=== PATIENT | female | born 1980 | race Caucasian/White ===

== ENCOUNTER → 2016-11-19 | Outpatient (CLI) | payer OTHER, BC ==
[~2016-11-19] MED LIST: ACYC5CRE4; VALA1TAB PO; ZPAK
[2016-11-19 12:43] LABS: ALT/SGPT 18 U/L (12-78); BLOOD UREA NITROGEN 12 mg/dl (7-18); BUN/CREATININE RATIO 16.3 (10-20); CARBON DIOXIDE 28 mmol/L (21-32); CHLORIDE 109 mmol/L (98-107); CHOLESTEROL 208 mg/dl (0-200); CREATININE 0.72 mg/dl (0.60-1.20); GLUCOSE 80 mg/dl (70-99); POTASSIUM 3.6 mmol/L (3.5-5.1); SODIUM 142 mmol/L (136-145)
[2016-11-19 12:48] LABS: ALKALINE PHOSPHATASE 58 U/L (45-117); AST/SGOT 17 U/L (15-37); HDL CHOLESTEROL 69 mg/dl; LDL CHOLESTEROL CALCULATED 129 mg/dl; TRIGLYCERIDES 51 mg/dl (0-150); VERY LOW DENSITY LIPOPROT CALC 10 mg/dl
== END | disposition home or self-care (01) ==
LOC: C.LABPBG 08:14
PROVIDERS: ATTEND Physician Assistant
DX: Z00.00 Encounter for general adult medical examination without abnormal findings (principal)

== ENCOUNTER → 2016-12-13 | Outpatient (CLI) | payer OTHER, BC ==
[2016-12-13 13:00] LABS: LYME DISEASE AB IGG NEG (NEG); LYME DISEASE AB IGM NEG (NEG)
== END | disposition home or self-care (01) ==
LOC: C.LABPBG 08:26
PROVIDERS: ATTEND Physician Assistant
DX: R20.2 Paresthesia of skin (principal); R53.83 Other fatigue; S70.369A Insect bite (nonvenomous), unspecified thigh, initial encounter; W57.XXXA Bitten or stung by nonvenomous insect and other nonvenomous arthropods, initial encounter

== ENCOUNTER → 2017-04-22 | Outpatient (CLI) | payer BC ==
[2017-04-22 17:37] LABS: BASO % 0.5 %; BASO ABS # 0.03 K/uL (0-0.2); EOS % 0.9 %; EOS ABS # 0.05 K/uL (0-0.5); HEMOGLOBIN 11.9 g/dL (12.0-16.0); IG# 0.01 K/uL (0.00-0.02); LYMPH % 29.4 %; LYMPH ABS # 1.63 K/uL (1.2-3.4); MEAN CELL VOLUME 94.2 fL (80-100); MEAN CORPUSCULAR HEMOGLOBIN 31.2 pg (25-34); MEAN CORPUSCULAR HGB CONC 33.1 g/dl (32-36); MEAN PLATELET VOLUME 10.6 fL (7.4-10.4); MONO % 5.9 %; MONO ABS # 0.33 K/uL (0.11-0.59); NEUT % 63.1 %; PLATELET COUNT 308 K/uL (130-400); RED CELL DISTRIBUTION WIDTH CV 13.2 % (11.5-14.5); RED CELL DISTRIBUTION WIDTH SD 45.1 fL (36.4-46.3); WHITE BLOOD COUNT 5.55 K/uL (4.8-10.8)
[2017-04-22 17:58] LABS: ALT/SGPT 19 U/L (12-78); AST/SGOT 17 U/L (15-37); BLOOD UREA NITROGEN 9 mg/dl (7-18); CARBON DIOXIDE 26 mmol/L (21-32); CREATININE 0.52 mg/dl (0.60-1.20); GLUCOSE 94 mg/dl (70-99); POTASSIUM 3.5 mmol/L (3.5-5.1); SODIUM 141 mmol/L (136-145)
[2017-04-22 18:00] LABS: ALKALINE PHOSPHATASE 53 U/L (45-117); TOTAL PROTEIN 7.3 gm/dl (6.4-8.2)
== END ==
LOC: C.LABPBG 14:11
PROVIDERS: ATTEND Family Medicine
DX: M25.50 Pain in unspecified joint (principal); M25.511 Pain in right shoulder; M25.579 Pain in unspecified ankle and joints of unspecified foot

== ENCOUNTER → 2017-04-26 | Outpatient (CLI) | payer BC ==
--- NOTE | 2017-04-26 14:27 | DIAGNOSTIC IMAGING REPORT ---
RIGHT SHOULDER 3 VIEWS HISTORY: M25.511 Right shoulder pain [id number] COMPARISON: None. FINDINGS: There is no fracture or dislocation. Soft tissues are unremarkable. The right clavicle is intact. IMPRESSION: No fracture or dislocation within the right shoulder. Electronically signed by: Trevor Lopez M.D. 04/26/2017 2:25 PM Dictated Date/Time: 04/26/2017 2:23 PM
== END | disposition home or self-care (01) ==
LOC: C.RADBC 14:10
PROVIDERS: ATTEND Family Medicine
DX: M25.511 Pain in right shoulder (principal)

== ENCOUNTER → 2017-07-17 | Outpatient (CLI) | payer BC ==
[2017-07-18 14:33] LABS: CLAM CLASS 0; CLAM IGE <0.10 KU/L; CRAB CLASS 0; CRAB IGE <0.10 KU/L; LOBSTER CLASS 0; LOBSTER IGE <0.10 KU/L; SHRIMP CLASS 0; SHRIMP IGE <0.10 KU/L
== END | disposition home or self-care (01) ==
LOC: C.LABPBG 09:20
PROVIDERS: ATTEND Family Medicine
DX: R21 Rash and other nonspecific skin eruption (principal)

== ENCOUNTER → 2017-08-05 | Outpatient (CLI) | payer BC ==
[2017-08-05 13:04] LABS: BASO % 1.1 %; BASO ABS # 0.06 K/uL (0-0.2); EOS % 4.5 %; EOS ABS # 0.25 K/uL (0-0.5); HEMATOCRIT 38.5 % (37-47); HEMOGLOBIN 12.8 g/dL (12.0-16.0); IG# 0.01 K/uL (0.00-0.02); LYMPH % 27.3 %; LYMPH ABS # 1.53 K/uL (1.2-3.4); MEAN CORPUSCULAR HEMOGLOBIN 30.9 pg (25-34); MEAN CORPUSCULAR HGB CONC 33.2 g/dl (32-36); MEAN PLATELET VOLUME 10.6 fL (7.4-10.4); MONO % 8.6 %; MONO ABS # 0.48 K/uL (0.11-0.59); NEUT % 58.3 %; NEUT ABS # 3.27 K/uL (1.4-6.5); PLATELET COUNT 281 K/uL (130-400); RED CELL DISTRIBUTION WIDTH CV 13.3 % (11.5-14.5); RED CELL DISTRIBUTION WIDTH SD 45.5 fL (36.4-46.3)
[2017-08-05 13:19] LABS: BLOOD UREA NITROGEN 15 mg/dl (7-18); CALCIUM 9.1 mg/dl (8.5-10.1); CARBON DIOXIDE 26 mmol/L (21-32); CREATININE 0.76 mg/dl (0.60-1.20); GLUCOSE 78 mg/dl (70-99); SODIUM 141 mmol/L (136-145)
== END | disposition home or self-care (01) ==
LOC: C.LABPBG 09:50
PROVIDERS: ATTEND Obstetrics & Gynecology Gynecology
DX: Z01.812 Encounter for preprocedural laboratory examination (principal)

== ENCOUNTER → 2017-11-27 | Outpatient (CLI) | payer BC ==
[2017-11-27 12:54] LABS: BASO % 1.1 %; BASO ABS # 0.07 K/uL (0-0.2); EOS % 3.2 %; HEMOGLOBIN 13.7 g/dL (12.0-16.0); IG# 0.01 K/uL (0.00-0.02); LYMPH % 26.3 %; LYMPH ABS # 1.66 K/uL (1.2-3.4); MEAN CELL VOLUME 93.2 fL (80-100); MEAN CORPUSCULAR HEMOGLOBIN 31.1 pg (25-34); MEAN CORPUSCULAR HGB CONC 33.4 g/dl (32-36); MEAN PLATELET VOLUME 10.7 fL (7.4-10.4); MONO % 6.3 %; NEUT % 62.9 %; NEUT ABS # 3.98 K/uL (1.4-6.5); PLATELET COUNT 278 K/uL (130-400); RED CELL DISTRIBUTION WIDTH CV 13.1 % (11.5-14.5); RED CELL DISTRIBUTION WIDTH SD 44.6 fL (36.4-46.3); WHITE BLOOD COUNT 6.32 K/uL (4.8-10.8)
[2017-11-27 13:25] LABS: HEMOGLOBIN A1C 5.2 % (4.5-5.6)
[2017-11-27 13:39] LABS: T3 FREE 2.62 pg/ml (2.30-4.20)
[2017-11-27 13:49] LABS: ALBUMIN 4.2 gm/dl (3.4-5.0); ALKALINE PHOSPHATASE 69 U/L (45-117); ALT/SGPT 29 U/L (12-78); AST/SGOT 24 U/L (15-37); BLOOD UREA NITROGEN 14 mg/dl (7-18); CALCIUM 9.2 mg/dl (8.5-10.1); CARBON DIOXIDE 28 mmol/L (21-32); CREATININE 0.73 mg/dl (0.60-1.20); GLUCOSE 75 mg/dl (70-99); POTASSIUM 3.5 mmol/L (3.5-5.1); SODIUM 141 mmol/L (136-145); TOTAL PROTEIN 7.9 gm/dl (6.4-8.2)
[2017-11-28 12:35] LABS: MICROSOMAL AB <1 IU/ML (<9)
== END | disposition home or self-care (01) ==
LOC: C.LABPBG 08:43
PROVIDERS: ATTEND Chiropractor
DX: M79.1 Myalgia (principal)